=== PATIENT | female | born 1950 | race Caucasian/White ===

== ENCOUNTER 2017-10-20 21:38 | Inpatient (IN) | payer MEDICARE, SELFPAY ==
[2017-10-20 22:17] LABS: #Basophils 0.1 thou/uL (0.0-0.2); #Lymphocytes 2.7 thou/uL (1.20-3.40); #Monocytes 1.2 thou/uL (0.11-0.59); #Neutrophils 14.7 thou/uL (1.40-6.50); %Basophils 0.4 % (0.0-1.0); %Eosinophils 0.2 % (0.0-10.0); %Lymphocytes 14.6 % (21.0-51.0); %Monocytes 6.1 % (0.0-10.0); Hematocrit 38.9 % (36.0-47.0); Mean Platelet Volume 7.5 fL (7.4-10.4); Red Blood Cell (RBC) Count 4.24 mill/uL (4.20-5.40); White Blood Cell (WBC) Count 18.7 thou/uL (4.8-10.8)
[2017-10-20 22:23] LABS: Prothrombin Time 13.4 SEC (12.0-14.7)
[2017-10-20 22:24] LABS: PTT 47.3 SEC (22.9-36.1)
[2017-10-20 22:40] LABS: ALT (SGPT) 15 U/L (8-55); AST (SGOT) 20 U/L (5-34); Alkaline Phosphatase 85 U/L (40-150); Anion Gap 18 mmol/L (10-20); BUN (Urea Nitrogen) 27 mg/dL (9.8-20.1); Bilirubin, Total 0.3 mg/dL (0.2-1.2); CK (CPK) 183 U/L (29-168); Calc. Creatinine Clearance 0 mL/min (70-130); Carbon Dioxide 22 mmol/L (23-31); Chloride 100 mmol/L (98-107); Estimated GFR-MDRD 32; Globulin 3.7 g/dL (2.4-3.5); Protein, Total 7.9 g/dL (6.0-8.3)
[2017-10-20 22:44] LABS: Troponin I 0.226 ng/mL (< 0.028)
[2017-10-20] MEDS ORDERED: Diltiazem HCl 125 MG, Admixture Fee 1 EACH in Sodium Chloride 0.9% 100 ML IVPB SCH (23:00)
[2017-10-21] MEDS ORDERED: Diltiazem HCl 125 MG, Admixture Fee 1 EACH in Sodium Chloride 0.9% 100 ML IVPB SCH ×3 (00:12→18:30)
[2017-10-21] MEDS ORDERED: Acetaminophen 325 MG TAB ONE (00:18)
[2017-10-21] MEDS ORDERED: Enoxaparin Sodium 80 MG/0.8 ML SYRINGE ONE (00:18)
[2017-10-21] MEDS ORDERED: Morphine 4 MG/ML VIAL SLOW IVP PRN (01:19)
[2017-10-21] MEDS ORDERED: Sodium Chloride 0.9% 1,000 ML IV SCH ×2 (01:20→01:41)
[2017-10-21] MEDS ORDERED: Ondansetron ODT 4 MG TAB SL PRN (01:20)
[2017-10-21] MEDS ORDERED: Ondansetron HCl/PF 4 MG/2 ML Vial IVP PRN (01:20)
[2017-10-21] MEDS ORDERED: Dextrose 50% Abboject 50 ML SYRINGE SLOW IVP PRN (01:41)
[2017-10-21] MEDS ORDERED: Dextrose 5% in Water 1,000 ML IV PRN (01:41)
[2017-10-21] MEDS ORDERED: HumaLOG 300 UNITS/3 ML VIAL SC PRN (01:41)
[2017-10-21] MEDS: Acetaminophen 325 MG TAB PO PRN ×4 (02:14→20:54)
[2017-10-21] MEDS ORDERED: Aspirin 325 MG TAB PO SCH (02:30)
[2017-10-21 02:34] LABS: Troponin I 1.335 ng/mL (< 0.028)
[2017-10-21] MEDS ORDERED: Meclizine HCl 25 MG TAB PO PRN (03:00)
[2017-10-21] MEDS ORDERED: PROVENTIL INHALER 6.7 G (200 INHALATIONS) INH PRN (03:00)
[2017-10-21 04:28] LABS: Amphetamine Not Detected (NotDetected); Methadone Not Detected (NotDetected); Methamphetamine Not Detected (NotDetected)
[2017-10-21 04:51] VITALS: BMI 28.2
--- NOTE | 2017-10-21 05:19 | HP-2 ---
CODE STATUS: FULL. PRIMARY CARE PHYSICIAN: [facility], out of town physician in [place]. ATTENDING PHYSICIAN: Dr. Suki Szymanski. RESIDENT: Dr. Fabiana Liu CHIEF COMPLAINT: Difficulty breathing, palpitations. HISTORY OF PRESENT ILLNESS: This is a 67-year-old female with past medical history of congestive heart failure, diabetes mellitus type 2, and hypertension that presents with shortness of breath, palpitations, and weakness since last night. The symptoms have been persistent throughout the day. The patient did start feeling more fatigued and had worsening palpitations, which prompted her to come to the emergency department. Of note, the patient does have a history of irregular heartbeats, but does not recall ever being told she has atrial fibrillation or atrial flutter. She has not been on anticoagulation therapy. The patient denies any chest pain, paroxysmal nocturnal dyspnea, or orthopnea. In the ED, she was found to be in atrial fibrillation with RVR. She was bolused 20 mg of Cardizem and put on a drip at 5 mg per hour. Since that time, the patient's heart rate has gone from the 180s to approximately the 110s. PAST MEDICAL HISTORY: 1. Congestive heart failure. 2. Diabetes mellitus type 2. 3. Hyperlipidemia. 4. Hypertension. 5. History of cerebrovascular accident. 6. History of transient ischemic attack. 7. Polycystic kidney disease. 8. Gastroesophageal reflux disease. 9. History of irregular heart rate. 10. Anemia of chronic disease. 11. Asthma. PAST SURGICAL HISTORY: 1. Appendectomy. 2. Hysterectomy. 3. Oophorectomy. ALLERGIES: 1. BUTORPHANOL. 2. FLUOXETINE. 3. HYOSCYAMINE. 4. IODINE. 5. KETOROLAC. 6. NSAIDS. 7. PROCHLORPERAZINE. 8. PROPOXYPHENE. 9. SULFAMETHOXAZOLE. 10. TOBRAMYCIN. 11. TRIMETHOPRIM. MEDICATIONS: 1. Albuterol sulfate 2 puffs inhalation q.4 h. p.r.n. 2. Amitriptyline 75 mg p.o. at bedtime. 3. Amlodipine besylate 5 mg p.o. daily. 4. Ascorbic acid 500 mg p.o. daily. 5. Atorvastatin 80 mg p.o. daily. 6. Vitamin B12 of 1000 mcg p.o. daily. 7. Estradiol 0.01% vaginal cream 1 gram at the urethra every 7 days. 8. Ferrous sulfate 325 mg p.o. daily. 9. Furosemide 20 mg p.o. daily. 10. Gabapentin 100 mg p.o. t.i.d. 11. Lisinopril 40 mg p.o. daily. 12. Meclizine 25 mg p.o. t.i.d. p.r.n. 13. Nitroglycerin 0.4 mg sublingual every 5 minutes p.r.n. 14. Omeprazole 20 mg p.o. daily. 15. Phenazopyridine 100 mg p.o. b.i.d. p.r.n. 16. Glyburide 2.5 mg p.o. daily. 17. Tizanidine 4 mg p.o. q.6 h. p.r.n. FAMILY HISTORY: Noncontributory. SOCIAL HISTORY: The patient denies tobacco, alcohol, or drug use. REVIEW OF SYSTEMS: A 12-point review of systems was performed, all were negative except as listed in the HPI and as indicated below. The patient does endorse a recent history of nasal congestion, rhinorrhea, cough, congestion. She states that prior to the onset of the palpitations, she does feel like she was getting ill. She did take some Benadryl, thinking that this is all allergy related. She did experience some nausea and a few episodes of nonbloody, nonbilious emesis as well as 2 episodes of diarrhea. The patient also endorses back pain, which is chronic and the patient endorses anxiety and depression. PHYSICAL EXAMINATION: VITAL SIGNS: Blood pressure 134/11, pulse 181, respiratory rate 20, T-max 97.7 , pulse ox 96% on room air, current weight 76 kilograms. GENERAL: The patient is alert and oriented x3, well-developed, well-nourished, obese, appropriately interactive. EYES: Pupils are equally round and reactive to light and accommodation. They are sluggish to react. Conjunctivae within normal limits. ENT: Nasal mucosa within normal limits. NECK: Supple. CARDIOVASCULAR: Patient is tachycardic with an irregularly irregular rhythm consistent with atrial fibrillation. Radial and pedal pulses 2+. RESPIRATORY: Normal effort, no retractions. LUNGS: Clear to auscultation bilaterally. SKIN: Skin is warm and dry without cyanosis or lesions. ABDOMEN: Soft, nontender to palpation. Bowel sounds are positive in all four quadrants and there are no masses or distention. EXTREMITIES: No clubbing, cyanosis or edema. MUSCULOSKELETAL: Structure is within normal limits. Tone is within normal limits. NEUROLOGIC: There appeared to be mild residual facial droop on the left from prior CVA, GCS of 15. PSYCHIATRIC: Appropriate. LABORATORY DATA: 1. White blood cell count 8.7, hemoglobin 12.7, hematocrit 38.9, platelets 275. 2. Sodium 137, potassium 3.0, chloride 100, bicarbonate 23, BUN 27, creatinine 1.61, glucose 136, calcium 10, total protein 7.9, albumin 4.2, AST 20, ALT 15, alkaline phosphatase 85, total bilirubin 0.3. 3. PT 13.4, PTT 47.3, INR 1.0. EKG shows atrial fibrillation with RVR and ST depression in leads IV, V, and . ASSESSMENT AND PLAN: This is a 67-year-old female with past medical history of an irregular heart rate, hypertension, congestive heart failure, diabetes mellitus type 2 that presents with weakness, palpitations, and shortness of breath since last night. 1. Atrial fibrillation with rapid ventricular response. The patient was admitted to telemetry. EKG is consistent with atrial fibrillation with RVR. The patient was bolused 20 mg of Cardizem in the ED and placed on a Cardizem drip at 5 mg per hour. That drip was increased to 10 mg per hour and the patient was given an additional bolus of Cardizem 20 mg IV push. Patient is currently asymptomatic. Troponins were elevated in the indeterminate range. We will continue to monitor troponins. Additionally, we will consult cardiology in the a.m. UDS is pending at this time. It is possible that this current episode of atrial fibrillation with RVR is secondary to recent viral illness. 2. ST depression in V4, V5, V6 and elevated troponins. The patient denies any chest pain. She was placed on therapeutic Lovenox for ST depression and potential myocardial ischemia. We will continue to trend cardiac enzymes. Recommend Cardiology consult in the morning. The patient may be a candidate for a nuclear stress test. 3. Congestive heart failure. The patient was placed on mild fluids due to potential acute kidney injury versus chronic kidney disease. We will fluid restrict free water and limit salt intake. Once it is determined whether or not patient will go back for cardiac catheterization or a stress test, patient can have a heart healthy diet. 4. Diabetes mellitus type 2. The patient was placed on mild sliding scale insulin and hypoglycemia protocol, do a.c. at bedtime Accu-Cheks. The patient' s home medications will be continued. 5. Hypertension. We will continue home medications. 6. Hyperlipidemia. We will continue home medications. 7. Hypokalemia, replace potassium. 8. Leukocytosis. This may be secondary to a stress reaction versus viral upper respiratory infection. 9. Acute kidney injury versus chronic kidney disease. The patient does have history of polycystic kidney disease. We are unable to determine baseline at this time. We will put the patient on mild fluids and continued to monitor BMP. 10. Deep venous thrombosis prophylaxis. Therapeutic Lovenox. DISPOSITION AND LENGTH OF HOSPITAL STAY: Two days. Symptomatic medication will be provided. History and physical exam as well as management discussed with Dr. Wren. EVON
[2017-10-21 05:28] LABS: #Lymphocytes 2.4 thou/uL (1.20-3.40); #Monocytes 0.6 thou/uL (0.11-0.59); #Neutrophils 8.5 thou/uL (1.40-6.50); %Basophils 0.1 % (0.0-1.0); %Eosinophils 0.2 % (0.0-10.0); %Lymphocytes 20.8 % (21.0-51.0); %Monocytes 5.2 % (0.0-10.0); Hematocrit 35.5 % (36.0-47.0); Mean Platelet Volume 7.3 fL (7.4-10.4); Red Blood Cell (RBC) Count 3.86 mill/uL (4.20-5.40); White Blood Cell (WBC) Count 11.5 thou/uL (4.8-10.8)
[2017-10-21] MEDS ORDERED: Potassium Chloride 20 MEQ TAB PO SCH ×2 (06:00→12:00)
[2017-10-21 06:02] LABS: Troponin I 2.085 ng/mL (< 0.028)
[2017-10-21 06:03] LABS: Anion Gap 15 mmol/L (10-20); BUN (Urea Nitrogen) 26 mg/dL (9.8-20.1); Calc. Creatinine Clearance 50 mL/min (70-130); Calcium 9.3 mg/dL (7.8-10.44); Carbon Dioxide 25 mmol/L (23-31); Chloride 101 mmol/L (98-107); Estimated GFR-MDRD 43
[2017-10-21] MEDS ORDERED: glyBURIDE 2.5 MG TAB PO SCH (07:30)
[2017-10-21] MEDS: Aspirin 325 MG TAB PO SCH (08:22)
[2017-10-21] MEDS: Atorvastatin Calcium 40 MG TAB PO SCH (08:22)
[2017-10-21] MEDS: Lisinopril 20 MG TAB PO SCH (08:22)
[2017-10-21] MEDS: Ascorbic Acid 500 mg Chewable Tablet PO SCH (08:22)
[2017-10-21] MEDS: Cyanocobalamin (Vitamin B-12) 1,000 MCG TAB PO SCH (08:22)
[2017-10-21] MEDS: Ferrous Sulfate 325 MG TAB PO SCH (08:23)
[2017-10-21] MEDS: Amlodipine 5 MG TAB PO SCH (08:23)
[2017-10-21] MEDS: Furosemide 20 MG TAB PO SCH (08:23)
[2017-10-21] MEDS: Gabapentin 100 MG CAP PO SCH ×3 (08:23→20:55)
[2017-10-21] MEDS ORDERED: Enoxaparin Sodium 80 MG/0.8 ML SYRINGE SC SCH (09:00)
--- NOTE | 2017-10-21 09:03 | RAD ---
PA AND LATERAL CHEST: Date: 10-21-17 History: Shortness of breath. Comparison: None. FINDINGS: Cardiac silhouette and pulmonary vasculature are within normal limits. The lungs are clear. Vertebrop lasty changes are seen involving the T12 vertebral body. Mild degenerative changes are seen in the t horacic spine. Rounded radiopaque density is seen anterior abdomen in the lateral projection which wa s not seen on the frontal view. This is likely related to ingested material within bowel. IMPRESSION: No acute cardiopulmonary process. POS: [facility]
[2017-10-21 15:39] LABS: Anion Gap 12 mmol/L (10-20); BUN (Urea Nitrogen) 19 mg/dL (9.8-20.1); Calc. Creatinine Clearance 53 mL/min (70-130); Calcium 9.2 mg/dL (7.8-10.44); Carbon Dioxide 24 mmol/L (23-31); Chloride 107 mmol/L (98-107); Estimated GFR-MDRD 46
--- NOTE | 2017-10-21 18:00 | EKG ---
Test Reason : Blood Pressure : / mmHG Vent. Rate : 113 BPM Atrial Rate : 110 BPM P-R Int : 000 ms QRS Dur : 086 ms QT Int : 320 ms P-R-T Axes : 000 001 184 degrees QTc Int : 438 ms Atrial fibrillation with rapid ventricular response Minimal voltage criteria for LVH, may be normal variant Abnormal ECG Confirmed by DR. Shoshana BILLY (3) on 10/21/2017 6:00:15 PM Referred By: SPENCER Confirmed By:DR. Shoshana BILLY
[2017-10-21] MEDS ORDERED: Digoxin 0.25 MG TAB PO SCH (18:15)
[2017-10-21] MEDS ORDERED: Communication Order-Pharmacy FS SCH (21:30)
[2017-10-21 21:39] LABS: Hematocrit 36.5 % (36.0-47.0)
[2017-10-21] MEDS: Sodium Chloride 0.9% 1,000 ML IV SCH (22:50)
--- NOTE | 2017-10-22 03:50 | CON ---
DATE OF CONSULTATION: 10/21/2017 HISTORY OF PRESENT ILLNESS: Gracie Grubbs is a 67-year-old white female whom I evaluated in 10/1997. She had normal coronary arteries on a catheterization by Dr. Romero with an ejection fraction of 70%. In 12/1997, she was admitted with a panic disorder and hyperventilation. Between her catheterization when I first saw her, she had multiple admissions for chest pain with normal Cardiolites. She had been seen in 03/2012 complaining of 48 hours of chest pain. After multiple admissions, it was felt that she should undergo repeat catheterization. This revealed ejection fraction of 60-65% with 20% proximal LAD and 10% distal right coronary artery stenosis. I have not seen her since that time. She has continued to have admissions for chest pain and had negative Cardiolites in 12/2013 and in 04/2016. Yesterday at 3:04 in the afternoon, she was sitting and had onset of feeling of her heart beating very rapidly and irregularly. She denied any chest discomfort or shortness of breath. She came to the emergency room and was found to be in atrial fibrillation with rapid ventricular response, was given 20 mg of Cardizem IV and then 5 mg per hour drip. Her heart rate fell from 180s to 110s. She has since converted to sinus rhythm. She has been found to have abnormal cardiac enzymes. PAST MEDICAL HISTORY: Diabetes, hyperlipidemia, hypertension, history of cerebrovascular accident and transient ischemic attack, polycystic kidney disease, GERD, minimal coronary artery disease on catheterization in 2011, and anemia. OPERATIONS: Appendectomy, hysterectomy, and oophorectomy. MEDICATIONS: Albuterol 2 puffs q.4 hours p.r.n., Elavil 75 at bedtime, amlodipine 5 mg daily, ascorbic acid 500 daily, atorvastatin 80 daily, estradiol 1 g q.7 days, ferrous sulfate 325 daily, furosemide 20 daily, gabapentin 100 mg t.i.d., glyburide 2.5 q.a.m., lisinopril 40 daily, Antivert 25 mg t.i.d. p.r.n., Nitrostat p.r.n., omeprazole 20 daily, Zofran 4 mg p.r.n. ALLERGIES: STADOL, PROZAC, LEVSIN, IODINE (she does not have true allergic reaction to IODINE, it is just listed so that she tries to avoid this with her polycystic kidney disease), TORADOL, DARVON, BACTRIM, TOBREX, NSAIDs. SOCIAL HISTORY: She smoked 1 pack per day, but stopped in the early 90s. She does not drink. FAMILY HISTORY: Negative for coronary artery disease. REVIEW OF SYSTEMS: A 12-point review of systems is unremarkable. PHYSICAL EXAMINATION: VITAL SIGNS: Blood pressure 125/65, pulse 85. HEENT: PERRL. NECK: Supple. CHEST: Clear. CARDIAC: S1 and S2 are normal without any S3, S4, or murmurs. Carotid upstrokes normal, without bruits. ABDOMEN: Normal bowel sounds, without tenderness. EXTREMITIES: Revealed no clubbing, cyanosis, or edema. NEUROLOGIC: Grossly intact. SKIN: Warm and dry. LABORATORY DATA: EKG on admission revealed atrial fibrillation with rapid ventricular response of 175 per minute, nonspecific ST and T-wave changes. CK- MB 9.0. Troponin I 2.085. TSH is normal. BUN 27, creatinine 1.61, which is improved to BUN of 19, creatinine 1.17. Also, potassium was down to 2.8 but is now up to 3.9. IMPRESSION: 1. Atrial fibrillation with fast ventricular response. 2. Elevated cardiac enzymes which certainly could be due to demand ischemia with such a fast rate; however, this seems to be a little higher than what would be expected. She had minimal coronary artery disease on a catheterization in 2011. 3. Hypertension. 4. Diabetes. 5. Hypercholesterolemia. 6. Reactive airway disease. 7. Polycystic kidney disease. 8. She does not have true IODINE allergy. PLAN: It was recommended she undergo a cardiac catheterization with her abnormal cardiac enzymes and then treatment of her atrial fibrillation with anticoagulation will be addressed. Risks of catheterization were discussed with the patient and her including , myocardial infarction, dye reaction, vascular injury, CVA, transfusion, limb loss, renal loss, etc. Also, risk of intervention with PTCA and stent placement were discussed including , myocardial infarction, emergent CABG, restenosis, stent thrombosis, vessel perforation, etc. It was recommended that a bare-metal stent be placed with also the need for anticoagulation at this time. The patient agrees to proceed. [facility]ITAL[facility]
[2017-10-22] MEDS: Sodium Chloride 0.9% 1,000 ML IV SCH ×3 (05:38→14:28)
[2017-10-22] MEDS: Atorvastatin Calcium 40 MG TAB PO SCH (05:41)
[2017-10-22] MEDS: Amlodipine 5 MG TAB PO SCH (05:41)
[2017-10-22] MEDS: Gabapentin 100 MG CAP PO SCH ×3 (05:42→20:46)
[2017-10-22] MEDS: Lisinopril 20 MG TAB PO SCH (05:43)
[2017-10-22] MEDS: Aspirin 325 MG TAB PO SCH (05:43)
[2017-10-22] MEDS ORDERED: Digoxin 0.125 MG TAB PO SCH (06:00)
[2017-10-22 07:54] LABS: Anion Gap 11 mmol/L (10-20); BUN (Urea Nitrogen) 23 mg/dL (9.8-20.1); Calc. Creatinine Clearance 48 mL/min (70-130); Calcium 9.3 mg/dL (7.8-10.44); Carbon Dioxide 25 mmol/L (23-31); Chloride 107 mmol/L (98-107); Estimated GFR-MDRD 40
[2017-10-22] MEDS ORDERED: Heparin 10,000 UNITS/1 ML VIAL ONE (10:05)
--- NOTE | 2017-10-22 10:27 | PDOC.FM ---
- Subjective Subjective: Patient states she is feeling well with no sob, chest pain, nausea. She stated that Dr. Mahajan saw her yesterday and consented her for heart cath. - Objective MAR Reviewed: Yes Vital Signs & Weight: Vital Signs (12 hours) Temp Pulse Resp BP BP Pulse Ox 10/22/17 08:04 97.9 F 76 14 117/59 L 96 10/22/17 05:43 114/56 L 10/22/17 05:41 63 114/56 L 10/22/17 04:00 98.4 F 67 20 114/56 L 93 L 10/22/17 01:25 65 22 H 99/60 10/22/17 00:18 66 24 H 89/50 L Weight Weight 73.346 kg I&O: 10/21/17 10/22/17 10/23/17 06:59 06:59 06:59 Intake Total 800 800 Output Total 700 1350 Balance 100 -550 Result Diagrams: 10/21/17 21:21 10/22/17 07:13 <Keegan Hernandez - Last Filed: 10/22/17 10:34> - Objective Vital Signs & Weight: Vital Signs (12 hours) Temp Pulse Resp BP BP Pulse Ox 10/22/17 08:05 97.9 F 76 14 96 10/22/17 08:04 97.9 F 76 14 117/59 L 96 10/22/17 05:43 114/56 L 10/22/17 05:41 63 114/56 L 10/22/17 04:00 98.4 F 67 20 114/56 L 93 L 10/22/17 01:25 65 22 H 99/60 10/22/17 00:18 66 24 H 89/50 L Weight Weight 73.346 kg I&O: 10/21/17 10/22/17 10/23/17 06:59 06:59 06:59 Intake Total 800 800 Output Total 700 1350 Balance 100 -550 Result Diagrams: 10/21/17 21:21 10/22/17 07:13 <Laurie Richard - Last Filed: 10/22/17 11:25> Phys Exam - Physical Examination HEENT: moist MMs Neck: supple Respiratory: no wheezing, no rales, no rhonchi, clear to auscultation bilateral Cardiovascular: RRR Gastrointestinal: soft, non-tender, no distention, positive bowel sounds Musculoskeletal: no edema Neurological: moves all 4 limbs Lymphatic: no nodes Psychiatric: normal affect <Keegan Hernandez - Last Filed: 10/22/17 10:34> Dx/Plan (1) Atrial fibrillation with RVR Code(s): I48.91 - UNSPECIFIED ATRIAL FIBRILLATION Status: Acute Plan: Afib with rvr now controlled with 10 of dilt, rate to 60-80. Echo taken today, will await read. (2) Elevated troponin Code(s): R74.8 - ABNORMAL LEVELS OF OTHER SERUM ENZYMES Status: Acute Plan: Cardiology consulted, they plan to do a cath today. (3) CHF (congestive heart failure) Code(s): I50.9 - HEART FAILURE, UNSPECIFIED Status: Acute Plan: Echo suggest preserved heart failure, EF of 60-65% (4) DM2 (diabetes mellitus, type 2) Status: Acute Plan: Held oral medication at this time, on SSI to prepare for cath (5) HTN (hypertension) Code(s): I10 - ESSENTIAL (PRIMARY) HYPERTENSION Status: Acute Plan: BP currently under control, continue home med (6) HLD (hyperlipidemia) Code(s): E78.5 - HYPERLIPIDEMIA, UNSPECIFIED Status: Acute Plan: Continue home med <Keegan Hernandez - Last Filed: 10/22/17 10:34> Attending Addendum - Attending Addendum I personally evaluated the patient and discussed the management with Dr. Hernandez I agree with the History, Examination, Assessment and Plan documented above with any addition or exceptions noted below. 67 yo female admitted for A. fib with RVR and NSTEMI HD#1 Doing well. No acute changes overnight. Now rate controlled A.Fib. Remains asymptomatic. Cards following. Continue CCB drip at present. Plan for cath this AM. Timothy <Laurie Richard - Last Filed: 10/22/17 11:25>
[2017-10-22] MEDS ORDERED: Fentanyl 100 MCG/2 ML VIAL ONE (11:57)
[2017-10-22] MEDS ORDERED: Midazolam HCl 2 mg/2 ml Vial ONE (11:57)
[2017-10-22] MEDS ORDERED: HumaLOG 300 UNITS/3 ML VIAL SC PRN (12:00)
[2017-10-22] MEDS ORDERED: glyBURIDE 2.5 MG TAB PO SCH (12:00)
[2017-10-22] MEDS ORDERED: Protamine Sulfate 50 MG/5 ML VIAL ONE (12:17)
[2017-10-22] MEDS ORDERED: Sodium Chloride 0.9% 200 ML IV SCH (12:30)
[2017-10-22] MEDS: Ferrous Sulfate 325 MG TAB PO SCH (12:57)
[2017-10-22] MEDS: Furosemide 20 MG TAB PO SCH (12:57)
[2017-10-22] MEDS: Acetaminophen 325 MG TAB PO PRN (12:57)
[2017-10-22] MEDS: Cyanocobalamin (Vitamin B-12) 1,000 MCG TAB PO SCH (12:57)
[2017-10-22] MEDS: Ascorbic Acid 500 mg Chewable Tablet PO SCH (12:58)
[2017-10-22] MEDS ORDERED: Iopamidol 370 76% 100 ML VIAL ONE (15:31)
[2017-10-22] MEDS: traMADol HCl 50 MG TAB PO PRN (18:44)
[2017-10-23] MEDS: traMADol HCl 50 MG TAB PO PRN ×2 (04:25→10:47)
[2017-10-23 05:28] LABS: Anion Gap 13 mmol/L (10-20); BUN (Urea Nitrogen) 14 mg/dL (9.8-20.1); Calc. Creatinine Clearance 55 mL/min (70-130); Calcium 9.3 mg/dL (7.8-10.44); Carbon Dioxide 25 mmol/L (23-31); Chloride 106 mmol/L (98-107); Cholesterol 154 mg/dl (< 200 Desired); Estimated GFR-MDRD 47; LDL Cholesterol, Calculated 80 mg/dL
[2017-10-23] MEDS: Cyanocobalamin (Vitamin B-12) 1,000 MCG TAB PO SCH (08:33)
[2017-10-23] MEDS: Ferrous Sulfate 325 MG TAB PO SCH (08:33)
[2017-10-23] MEDS: Aspirin 325 MG TAB PO SCH (08:33)
[2017-10-23] MEDS: Furosemide 20 MG TAB PO SCH (08:33)
[2017-10-23] MEDS: Atorvastatin Calcium 40 MG TAB PO SCH (08:33)
[2017-10-23] MEDS: Ascorbic Acid 500 mg Chewable Tablet PO SCH (08:34)
[2017-10-23] MEDS: Gabapentin 100 MG CAP PO SCH ×2 (08:34→15:44)
--- NOTE | 2017-10-23 08:50 | PDOC.FM ---
- Subjective Subjective: Pt seen at bedside in NAD. ISAIAH overnight. at bedside. Pt notes she feels well. Pt denies LOUIS, CP, SOB, NVD. - Objective MAR Reviewed: Yes Vital Signs & Weight: Vital Signs (12 hours) Temp Pulse Resp BP Pulse Ox 10/23/17 04:00 98.7 F 78 20 142/67 H 95 Weight Weight 72.235 kg I&O: 10/22/17 10/23/17 10/24/17 06:59 06:59 06:59 Intake Total 800 2280 Output Total 1350 2375 Balance -550 -95 Result Diagrams: 10/21/17 21:21 10/23/17 04:43 <Rodrigo Mays - Last Filed: 10/23/17 08:49> - Objective Vital Signs & Weight: Vital Signs (12 hours) Temp Pulse Resp BP Pulse Ox 10/23/17 08:30 98.9 F 71 16 137/75 94 L 10/23/17 04:00 98.7 F 78 20 142/67 H 95 Weight Weight 72.235 kg I&O: 10/22/17 10/23/17 10/24/17 06:59 06:59 06:59 Intake Total 800 2280 Output Total 1350 2375 Balance -550 -95 Result Diagrams: 10/21/17 21:21 10/23/17 04:43 <Mukul Ambrose - Last Filed: 10/23/17 10:32> Phys Exam - Physical Examination Constitutional: NAD HEENT: sclera anicteric Respiratory: no wheezing, clear to auscultation bilateral Cardiovascular: RRR, no significant murmur Gastrointestinal: soft, non-tender, positive bowel sounds Neurological: moves all 4 limbs Psychiatric: normal affect, A&O x 3 Skin: cap refill <2 seconds <Rodrigo Mays - Last Filed: 10/23/17 08:49> Dx/Plan (1) Atrial fibrillation with RVR Code(s): I48.91 - UNSPECIFIED ATRIAL FIBRILLATION Status: Acute Plan: -pt presented with complaints of palpitations and found to be in afib w/ RVR -initially responded to diltiazem gtt and transitioned to oral metoprolol -pt NSR on exam and telemetry reveals HR between 60-80 overnight -pt started on Eliquis for anticoagulation -cardiology on board, recs greatly appreciated -pt had TTE which showed HFpEF 60-65% -cath on 10/22, report pending but per nursing was normal -will continue to monitor BP today and consider discharge pending cardiology dispo (2) (HFpEF) heart failure with preserved ejection fraction Code(s): I50.30 - UNSPECIFIED DIASTOLIC (CONGESTIVE) HEART FAILURE Status: Acute Plan: -TTE on 10/22 showed EF 60-65% and evidence of diastolic dysfunction -cardiology on board, recs greatly appreciated (3) Elevated troponin Code(s): R74.8 - ABNORMAL LEVELS OF OTHER SERUM ENZYMES Status: Acute Plan: -trended upwards to 2.085 -cath on 10/22 reportedly normal (4) DM2 (diabetes mellitus, type 2) Status: Acute QualifierTitle: Diabetes mellitus complication status: with kidney complications Diabetes mellitus complication detail: with chronic kidney disease Diabetes mellitus java web architect insulin use: without java web architect use Chronic kidney disease stage: stage 3 (moderate) Qualified Code(s): E11.22 - Type 2 diabetes mellitus with diabetic chronic kidney disease; N18.3 - Chronic kidney disease, stage 3 (moderate); N18.3 - Chronic kidney disease, stage 3 ( moderate) Plan: -continue home glyburide (5) HTN (hypertension) Code(s): I10 - ESSENTIAL (PRIMARY) HYPERTENSION Status: Acute QualifierTitle: Hypertension type: unspecified Qualified Code(s): I10 - Essential (primary) hypertension Plan: -currently well controlled -episode of hypotension on night of admission has resolved -continue to monitor (6) HLD (hyperlipidemia) Code(s): E78.5 - HYPERLIPIDEMIA, UNSPECIFIED Status: Acute QualifierTitle: Hyperlipidemia type: unspecified Qualified Code(s): E78.5 - Hyperlipidemia, unspecified Plan: -continue home atorvastatin - Plan Plan: dispo: Pt stable and doing well. Pt has tolerated metoprolol well and has been started on anticoagulation with Eliquis. Pending cardiology recs, pt likely discharge this afternoon. Continue to monitor. <Rodrigo Mays - Last Filed: 10/23/17 08:49> Attending Addendum - Attending Addendum I personally evaluated the patient and discussed the management with Dr. Mays I agree with the History, Examination, Assessment and Plan documented above with any addition or exceptions noted below. symptoms resolved. sinus rhythm with stable BP on Metoprolol. Echo diastolic dysfunction. Stable for D/c home after noon if BP remains stable. <Mukul Ambrose - Last Filed: 10/23/17 10:32>
[2017-10-23] MEDS ORDERED: Apixaban 5 MG TAB PO SCH (09:00)
[2017-10-23] MEDS ORDERED: Lisinopril 20 MG TAB PO SCH (09:00)
[2017-10-23 17:05] VITALS: BP 143/63; TEMP 98.7
[2017-10-24] MEDS ORDERED: Aspirin 81 mg Enteric Coated Tablet PO SCH (09:00)
== END 2017-10-23 19:01 | disposition home or self-care (01) | DRG 281 ==
LOC: ERS 21:38 → 2NO 23:00
PROVIDERS: ADMIT Family Medicine; ATTEND Family Medicine
PROC: B2111ZZ Fluoroscopy of Multiple Coronary Arteries using Low Osmolar Contrast (ICD-10-PCS; principal; 2017-10-22)
DX: I48.91 Unspecified atrial fibrillation (principal); I21.A1 Myocardial infarction type 2; Q61.3 Polycystic kidney, unspecified; I47.2 Ventricular tachycardia; I38 Endocarditis, valve unspecified; I13.0 Hypertensive heart and chronic kidney disease with heart failure and stage 1 through stage 4 chronic kidney disease, or unspecified chronic kidney disease; I50.32 Chronic diastolic (congestive) heart failure; D72.829 Elevated white blood cell count, unspecified; E78.5 Hyperlipidemia, unspecified; Z79.01 Long term (current) use of anticoagulants; Z86.73 Personal history of transient ischemic attack (TIA), and cerebral infarction without residual deficits; Z90.710 Acquired absence of both cervix and uterus; Z90.721 Acquired absence of ovaries, unilateral; E87.6 Hypokalemia; F17.210 Nicotine dependence, cigarettes, uncomplicated; E78.00 Pure hypercholesterolemia, unspecified; J45.909 Unspecified asthma, uncomplicated; K21.9 Gastro-esophageal reflux disease without esophagitis; I25.10 Atherosclerotic heart disease of native coronary artery without angina pectoris; D63.1 Anemia in chronic kidney disease; N18.3 Chronic kidney disease, stage 3 (moderate); E11.22 Type 2 diabetes mellitus with diabetic chronic kidney disease
CPT/HCPCS: 36415; 36416; 71020; 80048; 80053; 80061; 80306; 82553; 83735; 84100; 84443; 84484; 85025; 85240; 85245; 85246; 85347; 85598; 85610; 85613; 85730; 93005; 93010; 93306; 93454; 96365; 96366; 96372; 96376; 99152; C1769; J1644; J1650; J2250; J2720; J3010; J7050

== ENCOUNTER 2017-11-21 23:12 | Emergency (ER) | payer MEDICARE ==
[2017-11-22] LABS: #Basophils 0.1 thou/uL (0.0-0.2); #Eosinphils 0.1 thou/uL (0.0-0.7); #Lymphocytes 2.9 thou/uL (1.20-3.40); #Monocytes 0.7 thou/uL (0.11-0.59); #Neutrophils 5.2 thou/uL (1.40-6.50); %Basophils 0.6 % (0.0-1.0); %Lymphocytes 32.6 % (21.0-51.0); %Monocytes 7.8 % (0.0-10.0); %Neutrophils 57.9 % (42.0-75.0); Hemoglobin 10.3 g/dL (12.0-16.0); Mean Corpuscular HGB CONC 32.8 g/dL (32.0-36.0); Mean Corpuscular Hemoglobin 30.3 pg (27.0-31.0); Mean Corpuscular Volume 92.4 fl (81.0-99.0); Mean Platelet Volume 7.3 fL (7.4-10.4); Platelet Count 336 thou/uL (130-400); RBC Distribution Width 16.1 % (11.5-14.5); Red Blood Cell (RBC) Count 3.39 mill/uL (4.20-5.40)
[2017-11-22 00:25] LABS: ALT (SGPT) 14 U/L (8-55); AST (SGOT) 19 U/L (5-34); Alkaline Phosphatase 98 U/L (40-150); Anion Gap 15 mmol/L (10-20); BUN (Urea Nitrogen) 20 mg/dL (9.8-20.1); Bilirubin, Total 0.3 mg/dL (0.2-1.2); CK (CPK) 73 U/L (29-168); Calc. Creatinine Clearance 0 mL/min (70-130); Calcium 9.4 mg/dL (7.8-10.44); Carbon Dioxide 20 mmol/L (23-31); Chloride 108 mmol/L (98-107); Estimated GFR-MDRD 32; Globulin 3.2 g/dL (2.4-3.5); Glucose 76 mg/dL (80-115); Potassium 3.7 mmol/L (3.5-5.1); Protein, Total 7.2 g/dL (6.0-8.3); Sodium 139 mmol/L (136-145)
[2017-11-22 00:28] LABS: CKMB 1.3 ng/mL (0-6.6); Troponin I 0.011 ng/mL (< 0.028)
[2017-11-22] MEDS ORDERED: Morphine 4 MG/ML Carpuject ONE (00:36)
[2017-11-22] MEDS ORDERED: Ondansetron HCl/PF 4 MG/2 ML Vial ONE (00:37)
[2017-11-22] MEDS ORDERED: Morphine 2 MG/ML SYRINGE ONE (00:37)
--- NOTE | 2017-11-22 07:28 | RAD ---
1 VIEW CHEST: Date: 11/21/17 HISTORY: Chest pain x1 week. COMPARISON: 10/21/17. FINDINGS: Portable upright chest demonstrates an enlarged cardiac silhouette. Pulmonary vessels and hilum are n ormal. Costophrenic angles are clear. Lungs are hyperinflated. No masses or consolidation. No pneumot horax. Previous vertebroplasty change is suggested in the distal thoracic spine. Evaluation is incomp lete. Similar findings are noted on radiograph from 10/21/17. IMPRESSION: 1. Cardiomegaly. 2. No acute cardiopulmonary process. POS: [facility]
== END 2017-11-22 01:30 | disposition home or self-care (01) ==
LOC: ERS 23:12
DX: R07.89 Other chest pain (principal); G47.30 Sleep apnea, unspecified; I11.0 Hypertensive heart disease with heart failure; I50.9 Heart failure, unspecified; E78.5 Hyperlipidemia, unspecified; K21.9 Gastro-esophageal reflux disease without esophagitis; Z86.73 Personal history of transient ischemic attack (TIA), and cerebral infarction without residual deficits; Z79.82 Long term (current) use of aspirin; Z79.84 Long term (current) use of oral hypoglycemic drugs; Z79.899 Other long term (current) drug therapy
CPT/HCPCS: 71045; 80053; 82553; 83880; 84484; 85025; 93005; 96374; 96375; J2270; J2405

== ENCOUNTER 2018-03-15 18:04 | Observation (INO) | payer MEDICARE ==
[2018-03-15 18:55] LABS: #Eosinphils 0.1 thou/uL (0.0-0.7); #Lymphocytes 2.9 thou/uL (1.20-3.40); #Monocytes 0.5 thou/uL (0.11-0.59); #Neutrophils 5.1 thou/uL (1.40-6.50); %Basophils 0.2 % (0.0-1.0); %Eosinophils 0.7 % (0.0-10.0); %Lymphocytes 34.3 % (21.0-51.0); %Monocytes 5.7 % (0.0-10.0); %Neutrophils 59.1 % (42.0-75.0); Hemoglobin 11.1 g/dL (12.0-16.0); Mean Corpuscular HGB CONC 33.3 g/dL (32.0-36.0); Mean Corpuscular Hemoglobin 30.6 pg (27.0-31.0); Mean Corpuscular Volume 91.9 fl (81.0-99.0); Mean Platelet Volume 6.8 fL (7.4-10.4); Platelet Count 323 thou/uL (130-400); RBC Distribution Width 13.9 % (11.5-14.5); Red Blood Cell (RBC) Count 3.63 mill/uL (4.20-5.40); White Blood Cell (WBC) Count 8.6 thou/uL (4.8-10.8)
[2018-03-15 18:58] LABS: PTT 34.6 SEC (22.9-36.1); Prothrombin Time 13.7 SEC (12.0-14.7)
[2018-03-15 19:09] LABS: ALT (SGPT) 11 U/L (8-55); AST (SGOT) 17 U/L (5-34); Albumin 4.2 g/dL (3.4-4.8); Alkaline Phosphatase 97 U/L (40-150); Anion Gap 13 mmol/L (10-20); BUN (Urea Nitrogen) 14 mg/dL (9.8-20.1); Bilirubin, Total 0.3 mg/dL (0.2-1.2); CK (CPK) 85 U/L (29-168); Calc. Creatinine Clearance 0 mL/min (70-130); Carbon Dioxide 21 mmol/L (23-31); Chloride 108 mmol/L (98-107); Estimated GFR-MDRD 41; Globulin 3.2 g/dL (2.4-3.5); Glucose 88 mg/dL (80-115); Potassium 3.8 mmol/L (3.5-5.1); Protein, Total 7.4 g/dL (6.0-8.3); Sodium 138 mmol/L (136-145)
[2018-03-15] MEDS ORDERED: Morphine 4 MG/ML VIAL ONE ×2 (19:19→22:16)
[2018-03-15] MEDS ORDERED: Nitroglycerin 2% Ointment 1 INCH/1 GM Packet ONE ×2 (19:19→21:44)
[2018-03-15 19:20] LABS: CKMB 1.4 ng/mL (0-6.6); Troponin I 0.015 ng/mL (< 0.028)
--- NOTE | 2018-03-15 19:36 | RAD ---
TWO VIEWS CHEST: History: Shortness of breath. Chest pain. Date: 03-15-18 Comparison: 02-09-18 FINDINGS: Two views of the chest demonstrates a previous vertebroplasty at the T12 level. Osteopenia of the thoracic spine is seen. The lungs are well aerated. No evidence of acute intrathoracic abnormality seen. No evidence of effus ion, pneumonia, or pneumothorax seen. IMPRESSION: Unremarkable two views chest. POS: [facility]
[2018-03-15] MEDS ORDERED: Nitroglycerin 0.4 MG TAB (25 Tab Bottle) PO PRN (23:07)
[2018-03-15] MEDS ORDERED: Enoxaparin Sodium 80 MG/0.8 ML SYRINGE SC SCH (23:15)
[2018-03-15] MEDS ORDERED: Dextrose 50% Abboject 50 ML SYRINGE SLOW IVP PRN (23:16)
[2018-03-15] MEDS ORDERED: Dextrose 5% in Water 1,000 ML IV PRN (23:16)
[2018-03-15] MEDS ORDERED: Insulin Regular 300 UNITS/3 ML VIAL SC PRN (23:16)
[2018-03-15] MEDS ORDERED: Enoxaparin Sodium 80 MG/0.8 ML SYRINGE ONE (23:33)
[2018-03-15 23:47] LABS: Troponin I Less than 0.010 ng/mL (< 0.028)
--- NOTE | 2018-03-16 01:11 | HP ---
CHIEF COMPLAINT: Chest pain. PRIMARY CARE PHYSICIAN: Out of town. HISTORY OF PRESENT ILLNESS: Patient is a 67-year-old female who presents to the hospital with compla ints of chest pain x1. Patient states that she was sitting, folding clothes when she started having some substernal chest pain, which did not radiate to her right or left arm. Patient states that she denies any diaphoresis, nausea, vomiting associated with the pain. Patient stated that initially her pain was sharp in nature. However, 2 hours later she started having some shortness of breath and stringer d to go out and take some few deep breaths. Patient got concerned since she did have heart attack and wanted to come in for further evaluation. Patient states that she has been under a lot o f stress recently. According to her, she has been compliant with her medications; however, in the ER , she was found to have a subtherapeutic INR. Patient currently states that her pain is around 1. P atient also states that she would prefer to have morphine for her chest pain rather than nitroglyceri n. Patient denies any orthopnea or PND. Patient states that when she had her chest pain, she did no t take her nitroglycerin because patient feels that her nitro is very old. PAST MEDICAL HISTORY: 1. Heart failure, unknown type. 2. Diabetes, type 2. 3. Hyperlipidemia. 4. Hypertension. 5. History of cerebrovascular accident. 6. History of transient ischemic attack. 7. Polycystic kidney disease. 8. Reflux. 9. Irregular heart rate. 10. Anemia of chronic disease. 11. Asthma. PAST SURGICAL HISTORY: She has had appendectomy, hysterectomy, and oophorectomy. ALLERGIES: She has multiple allergies including BUTORPHANOL, FLUOXETINE, IODINE, HYOSCYAMINE, TORADO L, NSAIDS, SULFAMETHOXAZOLE, TOBRAMYCIN, TRIMETHOPRIM, PROPOXYPHENE, PROCHLORPERAZINE. MEDICATIONS: Are as the following: She takes albuterol 2 puffs q.4 hours p.r.n., amitriptyline 75 m g at bedtime, amlodipine 5 mg every day, vitamin C 500 mg daily, atorvastatin 80 mg daily, vitamin B1 2 of 1000 mcg daily, iron 325 daily, furosemide 20 mg daily, gabapentin 100 mg daily, lisinopril 40 m g daily, meclizine 25 mg t.i.d. p.r.n., nitroglycerin 0.5 sublingual every 5 minutes p.r.n., omeprazo le 20 mg daily, glyburide 2.5 mg daily, and Zanaflex 2 mg p.o. q.6 hours p.r.n. FAMILY HISTORY: Denies any history of heart disease or diabetes in her family. SOCIAL HISTORY: Denies any alcohol, tobacco, or smoking history. She does have remote history of sm oking. REVIEW OF SYSTEMS: Except for the ones mentioned in the HPI, 12-point review of systems all negative . PHYSICAL EXAMINATION: VITAL SIGNS: Temperature of 97.9, heart rate of 64, respirations are 18, blood pressure is 155/72. GENERAL: She is awake, alert, oriented x3, does not appear in any distress. HEENT: Normocephalic, atraumatic. Patient has no teeth. NECK: No lymphadenopathy noted. CARDIOVASCULAR: S1, S2 present. No murmurs, rubs, or gallops. Regular rate and rhythm. LUNGS: Clear to auscultation. No rhonchi or wheezes noted. ABDOMEN: Soft, nontender. Bowel sounds are present x2. EXTREMITIES: No edema. SKIN: No lesions or rash noted. NEUROLOGIC: Alert and oriented x3. No focal deficits noted. LABORATORY DATA: Are as the following: WBC of 8.6, hemoglobin of 11.1, hematocrit of 33.4, platelet s of 323. Chemistry: Sodium of 138, potassium of 3.8, BUN of 14, creatinine of 1.30. Troponin x1 i s negative. BNP is 113.3. LFTs are normal. Her INR is 1.0. ASSESSMENT AND PLAN: Patient is a very pleasant 67-year-old female who presents to the hospital with complaints of chest pain. 1. Chest pain. Currently, her troponins are negative x1. EKG, no significant changes. We will con tinue to trend troponins. We will also consult Cardiology since she does have a history of coronary artery disease status post stent back in 09/2017. Patient currently is subtherapeutic. We will star t patient on Lovenox until she is therapeutic. We will leave it up to Cardiology if she needs a stre ss test. I will unable to do the D-Dimer because patient is on Coumadin. Patient states that she stringer s been taking her Coumadin as scheduled and states that Cardiology has been monitoring her Coumadin douglas estrella. 2. Hypertension, uncontrolled. We will continue her home meds and add p.r.n.s' 3. Diabetes. We will put patient on sliding scale insulin and continue to monitor. 4. Atrial fibrillation. We will start patient on her normal medications from home, patient is subth erapeutic, we will start Lovenox. 5. Heart failure, diastolic dysfunction, currently patient's BNP is mildly elevated. She has got no clinical manifestations of heart failure. We will just continue to monitor.
[2018-03-16] MEDS ORDERED: hydrALAZINE 20 MG/ML VIAL SLOW IVP PRN (01:12)
[2018-03-16 02:09] LABS: #Eosinphils 0.1 thou/uL (0.0-0.7); #Lymphocytes 2.5 thou/uL (1.20-3.40); #Monocytes 0.6 thou/uL (0.11-0.59); %Basophils 0.4 % (0.0-1.0); %Eosinophils 0.9 % (0.0-10.0); %Lymphocytes 30.8 % (21.0-51.0); %Monocytes 6.8 % (0.0-10.0); Hemoglobin 9.5 g/dL (12.0-16.0); Mean Corpuscular HGB CONC 33.1 g/dL (32.0-36.0); Mean Corpuscular Hemoglobin 30.3 pg (27.0-31.0); Mean Corpuscular Volume 91.7 fl (81.0-99.0); Mean Platelet Volume 6.1 fL (7.4-10.4); Platelet Count 279 thou/uL (130-400); Red Blood Cell (RBC) Count 3.14 mill/uL (4.20-5.40); White Blood Cell (WBC) Count 8.2 thou/uL (4.8-10.8)
[2018-03-16 02:31] LABS: Troponin I 0.017 ng/mL (< 0.028)
[2018-03-16 02:36] LABS: Anion Gap 10 mmol/L (10-20); BUN (Urea Nitrogen) 13 mg/dL (9.8-20.1); Calc. Creatinine Clearance 52 mL/min (70-130); Carbon Dioxide 23 mmol/L (23-31); Cardiac Risk 4.3 (Less than 4.5); Chloride 110 mmol/L (98-107); Cholesterol 204 mg/dl (< 200 Desired); Estimated GFR-MDRD 49; Glucose 102 mg/dL (80-115); HDL Cholesterol 47 mg/dL (>60 Neg Risk); LDL Cholesterol, Calculated 131 mg/dL; Potassium 3.5 mmol/L (3.5-5.1); Sodium 139 mmol/L (136-145); Triglycerides 132 mg/dL (Less than 150)
[2018-03-16] MEDS: Acetaminophen 325 MG TAB PO PRN ×2 (04:39→12:11)
[2018-03-16] MEDS: Morphine 4 MG/ML VIAL SLOW IVP PRN ×2 (04:39→12:06)
[2018-03-16] MEDS ORDERED: Ondansetron ODT 4 MG TAB PO PRN (05:44)
[2018-03-16] MEDS ORDERED: Prevnar 13-Val Conj/PF 0.5 ML SYRINGE IM ONE (09:00)
[2018-03-16] MEDS: Ferrous Sulfate 325 MG TAB PO SCH (09:34)
[2018-03-16] MEDS: Ascorbic Acid 500 mg Chewable Tablet PO SCH (09:34)
[2018-03-16] MEDS: Furosemide 20 MG TAB PO SCH (09:34)
[2018-03-16] MEDS: Gabapentin 100 MG CAP PO SCH ×3 (09:34→21:03)
[2018-03-16] MEDS: Enoxaparin Sodium 80 MG/0.8 ML SYRINGE SC SCH ×2 (09:35→21:04)
[2018-03-16] MEDS: Docusate 100 MG CAP PO SCH ×2 (09:35→21:04)
[2018-03-16] MEDS ORDERED: HYDROcodone/Acetaminophen 5/325 mg Tablet PO PRN (12:23)
[2018-03-16] MEDS: Warfarin Sodium 10 MG TAB PO SCH (16:14)
[2018-03-16] MEDS ORDERED: Warfarin Sodium 5 MG TAB PO SCH (17:00)
[2018-03-16] MEDS: HYDROcodone/Acetaminophen 5/325 mg Tablet PO PRN (18:34)
[2018-03-16] MEDS: Lisinopril 20 MG TAB PO SCH (21:03)
[2018-03-16] MEDS: Senokot S 8.6-50 MG TAB PO SCH (21:03)
[2018-03-16] MEDS: Atorvastatin Calcium 40 MG TAB PO SCH (21:03)
--- NOTE | 2018-03-16 22:55 | PDOC.PN ---
- Subjective Encounter Start Date: 03/16/18 Encounter Start Time: 11:00 Patient seen and examined for CP. Still has intermittent chest tightness. No new complaints. No overnight events - Objective Resuscitation Status: Resuscitation Status FULL:Full Resuscitation MAR Reviewed: Yes Vital Signs & Weight: Vital Signs (12 hours) Temp Pulse Resp BP BP Pulse Ox 03/16/18 21:03 147/73 H 03/16/18 19:17 98.1 F 56 L 16 147/73 H 95 03/16/18 15:10 97.7 F 63 16 145/73 H 94 L 03/16/18 11:17 98.0 F 60 18 166/81 H 95 Weight Weight 147 lb 9.6 oz I&O: 03/15/18 03/16/18 03/17/18 06:59 06:59 06:59 Intake Total 500 Output Total 2049 Balance -1550 Result Diagrams: 03/16/18 02:01 03/16/18 02:01 Additional Labs: Accuchecks 03/16/18 03/16/18 03/16/18 20:31 16:41 11:22 POC Glucose 134 H 115 H 106 03/16/18 05:51 POC Glucose 97 EKG Reviewed by me: Yes (Tele SR) Phys Exam - Physical Examination Constitutional: NAD Neck: no JVD Respiratory: no wheezing, no rales, no rhonchi Symmetrical Cardiovascular: RRR, no rub no heaves/pulsations Gastrointestinal: soft, non-tender, no distention, positive bowel sounds Musculoskeletal: no edema Neurological: non-focal, normal sensation, moves all 4 limbs Psychiatric: A&O x 3 Dx/Plan (1) Chest pain Code(s): R07.9 - CHEST PAIN, UNSPECIFIED Status: Acute Comment: Troponins negative. No need for intervention per Cath 4 months ago. (2) Paroxysmal A-fib Code(s): I48.0 - PAROXYSMAL ATRIAL FIBRILLATION Status: Acute Comment: Rate controlled. Out of Warfarin for last 4-5 days. Follows Warfarin clinic - INR 2.7 in January 2018 (3) DM2 (diabetes mellitus, type 2) Status: Chronic Qualifiers: Chronic kidney disease stage: stage 3 (moderate) Comment: on Sliding scale (4) HTN (hypertension) Code(s): I10 - ESSENTIAL (PRIMARY) HYPERTENSION Status: Chronic (5) Subtherapeutic anticoagulation Code(s): Z51.81 - ENCOUNTER FOR THERAPEUTIC DRUG LEVEL MONITORING; Z79.01 - CUST[employer] HARVESTER (CURRENT) USE OF ANTICOAGULANTS Status: Acute - Plan DVT proph w/lovenox Cont Lovenox for now due to subtherapeutic INR -: INR in AM -: Warfarin 10 mg x 1 -: Cont current meds as below -: DC Imdur, Resume home meds including Amlodipine, Lisinopril Review of Systems - Review of Systems Respiratory: negative: Cough, Dry, Shortness of Breath, Hemoptysis, SOB with Excertion, Pleuritic Pain, Sputum, Wheezing Gastrointestinal: negative: Nausea, Vomiting, Abdominal Pain, Diarrhea, Constipation, Melena, Hematochezia, Other - Medications/Allergies Allergies/Adverse Reactions: Allergies Allergy/AdvReac Type Severity Reaction Status Date / Time butorphanol [From Stadol] Allergy Verified 03/16/18 00:50 fluoxetine [From Prozac] Allergy Verified 03/16/18 00:50 hyoscyamine [From Levsin] Allergy Verified 03/16/18 00:50 iodine Allergy Verified 03/16/18 00:50 ketorolac [From Toradol] Allergy Verified 03/16/18 00:50 NSAIDS (Non-Steroidal Allergy Verified 03/16/18 00:50 Anti-Inflamma prochlorperazine Allergy Verified 03/16/18 00:50 [From Compazine] propoxyphene [From Darvon] Allergy Verified 03/16/18 00:50 sulfamethoxazole Allergy Verified 03/16/18 00:50 [From Bactrim] tobramycin [From Tobrex] Allergy Verified 03/16/18 00:50 trimethoprim [From Bactrim] Allergy Verified 03/16/18 00:50 Medications: Current Medications Acetaminophen (Tylenol) 650 mg PO Q4H PRN PRN Reason: Headache/Fever or Pain Last Admin: 03/16/18 12:11 Dose: 650 mg Hydrocodone Bitart/Acetaminophen ([place] 5/325) 1 tab PO Q4H PRN PRN Reason: Moderate Pain (4-6) Hydrocodone Bitart/Acetaminophen ([place] 5/325) 2 tab PO Q4H PRN PRN Reason: Severe Pain (7-10) Last Admin: 03/16/18 18:34 Dose: 2 tab Amitriptyline HCl (Elavil) 75 mg PO HS [facility] Last Admin: 03/16/18 21:04 Dose: 75 mg Amlodipine Besylate (Norvasc) 5 mg PO DAILY [facility] Ascorbic Acid (Vitamin C) 500 mg PO DAILY [facility] Last Admin: 03/16/18 09:34 Dose: 500 mg Atorvastatin Calcium (Lipitor) 80 mg PO HS [facility] Last Admin: 03/16/18 21:03 Dose: 80 mg Dextrose/Water (Dextrose 50%) 25 gm SLOW IVP PRN PRN PRN Reason: Hypoglycemia Docusate Sodium (Colace) 100 mg PO BID [facility] Last Admin: 03/16/18 21:04 Dose: 100 mg Enoxaparin Sodium (Lovenox) 70 mg SC 0900,2100 [facility] Last Admin: 03/16/18 21:04 Dose: 70 mg Ferrous Sulfate (Feosol) 325 mg PO DAILY [facility] Last Admin: 03/16/18 09:34 Dose: 325 mg Furosemide (Lasix) 20 mg PO DAILY [facility] Last Admin: 03/16/18 09:34 Dose: 20 mg Gabapentin (Neurontin) 100 mg PO TID [facility] Last Admin: 03/16/18 21:03 Dose: 100 mg Glucagon (Glucagon) 1 mg IM PRN PRN PRN Reason: Hypoglycemia Hydralazine HCl (Apresoline) 5 mg SLOW IVP Q6H PRN PRN Reason: SBP Greater Than 170 Dextrose/Water (D5w) 1,000 mls @ 0 mls/hr IV .Q0M PRN; As Directed PRN Reason: Hypoglycemia Insulin Human Regular (Humulin R) 0 units SC .MILD SLIDING SCALE PRN PRN Reason: Mild Correctional Scale Lisinopril (Zestril) 20 mg PO [facility] Last Admin: 03/16/18 21:03 Dose: 20 mg Miscellaneous Medication (Pharmacy To Dose) 1 each PO .WARFARIN [facility] Nitroglycerin (Nitrostat) 0.4 mg PO Q5MIN PRN PRN Reason: Chest Pain Ondansetron HCl (Zofran Odt) 4 mg PO Q6H PRN PRN Reason: Nausea/Vomiting Last Admin: 03/16/18 05:47 Dose: 4 mg Polyethylene Glycol (Miralax) 17 gm PO DAILY [facility] Senna/Docusate Sodium (Senokot S) 1 tab PO BID [facility] Last Admin: 03/16/18 21:03 Dose: 1 tab Warfarin Sodium (Coumadin) 10 mg PO 1700 [facility] Last Admin: 03/16/18 16:14 Dose: 10 mg
[2018-03-17 05:06] LABS: Hemoglobin 9.7 g/dL (12.0-16.0); Platelet Count 279 thou/uL (130-400)
[2018-03-17 05:07] LABS: INR-International Normal Ratio 1.2
[2018-03-17] MEDS: HYDROcodone/Acetaminophen 5/325 mg Tablet PO PRN ×4 (07:25→20:57)
[2018-03-17] MEDS: Ferrous Sulfate 325 MG TAB PO SCH (07:26)
[2018-03-17] MEDS: Docusate 100 MG CAP PO SCH ×2 (07:26→20:56)
[2018-03-17] MEDS: Ascorbic Acid 500 mg Chewable Tablet PO SCH (07:26)
[2018-03-17] MEDS: Amlodipine 5 MG TAB PO SCH (07:27)
[2018-03-17] MEDS: Gabapentin 100 MG CAP PO SCH ×3 (07:27→20:56)
[2018-03-17] MEDS: Polyethylene Glycol 3350 17 GM Packet PO SCH (07:27)
[2018-03-17] MEDS: Senokot S 8.6-50 MG TAB PO SCH ×2 (07:27→20:56)
[2018-03-17] MEDS: Furosemide 20 MG TAB PO SCH (07:27)
[2018-03-17] MEDS: Enoxaparin Sodium 80 MG/0.8 ML SYRINGE SC SCH ×2 (07:28→20:57)
--- NOTE | 2018-03-17 16:01 | PDOC.PN ---
- Subjective Encounter Start Date: 03/17/18 Encounter Start Time: 15:59 Subjective: no new compliants.no CP/SOB/Cough.Fever - Objective Resuscitation Status: Resuscitation Status FULL:Full Resuscitation MAR Reviewed: Yes Vital Signs & Weight: Vital Signs (12 hours) Temp Pulse Resp BP Pulse Ox 03/17/18 11:06 97.4 F L 59 L 16 123/62 94 L 03/17/18 08:00 98.0 F 61 16 03/17/18 07:27 61 03/17/18 07:19 97.6 F 67 16 143/86 H 98 03/17/18 04:22 98.1 F 61 16 129/67 93 L Weight Weight 150 lb I&O: 03/16/18 03/17/18 03/18/18 06:59 06:59 06:59 Intake Total 740 Output Total 2450 1600 Balance -1710 -1600 Result Diagrams: 03/17/18 04:21 03/16/18 02:01 Additional Labs: Accuchecks 03/17/18 03/17/18 03/16/18 11:07 05:06 20:31 POC Glucose 95 94 134 H 03/16/18 16:41 POC Glucose 115 H Laboratory Tests 02/09/18 03/15/18 03/15/18 00:48 17:30 18:46 INR Creatinine 1.34 H 1.30 H Troponin I 0.015 Cholesterol LDL Cholesterol, Calc HDL Cholesterol 03/15/18 03/15/18 03/16/18 18:46 23:16 02:01 INR 1.0 Creatinine Troponin I Less than 0.010 0.017 Cholesterol LDL Cholesterol, Calc HDL Cholesterol 03/16/18 03/17/18 02:01 04:21 INR 1.2 Creatinine 1.12 H Troponin I Cholesterol 204 H LDL Cholesterol, Calc 131 HDL Cholesterol 47 LABS REVIEWED Phys Exam - Physical Examination Constitutional: NAD HEENT: PERRLA, moist MMs, sclera anicteric, oral pharynx no lesions Neck: no nodes, no JVD, supple, full ROM Respiratory: no wheezing, no rales, no rhonchi, clear to auscultation bilateral Cardiovascular: no significant murmur, no rub, irregular Gastrointestinal: soft, non-tender, no distention, positive bowel sounds Musculoskeletal: no edema, pulses present Neurological: non-focal, normal sensation, moves all 4 limbs Psychiatric: normal affect, A&O x 3 Skin: no rash Dx/Plan (1) Chest pain Code(s): R07.9 - CHEST PAIN, UNSPECIFIED Status: Acute Comment: Troponins negative. No need for intervention per Cath 4 months ago. (2) Paroxysmal A-fib Code(s): I48.0 - PAROXYSMAL ATRIAL FIBRILLATION Status: Acute Comment: Rate controlled. Out of Warfarin for last 4-5 days. Follows Warfarin clinic - INR 2.7 in January 2018 (3) Subtherapeutic anticoagulation Code(s): Z51.81 - ENCOUNTER FOR THERAPEUTIC DRUG LEVEL MONITORING; Z79.01 - LONGTERM (CURRENT) USE OF ANTICOAGULANTS Status: Acute Comment: on BID lovenox for bridging (4) DM2 (diabetes mellitus, type 2) Status: Chronic Qualifiers: Chronic kidney disease stage: stage 3 (moderate) Comment: on Sliding scale (5) HTN (hypertension) Code(s): I10 - ESSENTIAL (PRIMARY) HYPERTENSION Status: Chronic (6) DM2 (diabetes mellitus, type 2) Status: Acute Qualifiers: Diabetes mellitus mcfp insulin use: without mcfp use Diabetes mellitus complication status: with kidney complications Diabetes mellitus complication detail: with chronic kidney disease Chronic kidney disease stage : stage 3 (moderate) Qualified Code(s): E11.22 - Type 2 diabetes mellitus with diabetic chronic kidney disease; N18.3 - Chronic kidney disease, stage 3 ( moderate); N18.3 - Chronic kidney disease, stage 3 (moderate) (7) HLD (hyperlipidemia) Code(s): E78.5 - HYPERLIPIDEMIA, UNSPECIFIED Status: Acute Qualifiers: Hyperlipidemia type: unspecified Qualified Code(s): E78.5 - Hyperlipidemia , unspecified - Plan DVT proph w/SCDs cont lovenox for bridgling till coumadin therapeutic.monitor INR -: pt unable to afford OP cost of lovenox so needs inpt care -: HD stable. -: home meds as below * . Review of Systems - Review of Systems Constitutional: negative: fever, chills, sweats, weakness, malaise, other Respiratory: negative: Cough, Dry, Shortness of Breath, Hemoptysis, SOB with Excertion, Pleuritic Pain, Sputum, Wheezing Cardiovascular: negative: chest pain, palpitations, orthopnea, paroxysmal nocturnal dyspnea, edema, light headedness, other Gastrointestinal: negative: Nausea, Vomiting, Abdominal Pain, Diarrhea, Constipation, Melena, Hematochezia, Other Genitourinary: negative: Dysuria, Frequency, Incontinence, Hematuria, Retention , Other Musculoskeletal: negative: Neck Pain, Shoulder Pain, Arm Pain, Back Pain, Hand Pain, Leg Pain, Foot Pain, Other Skin: negative: Rash, Lesions, Lauri, Bruising, Other Neurological: negative: Weakness, Numbness, Incoordination, Change in Speech, Confusion, Seizures, Other - Medications/Allergies Allergies/Adverse Reactions: Allergies Allergy/AdvReac Type Severity Reaction Status Date / Time butorphanol [From Stadol] Allergy Verified 03/16/18 00:50 fluoxetine [From Prozac] Allergy Verified 03/16/18 00:50 hyoscyamine [From Levsin] Allergy Verified 03/16/18 00:50 iodine Allergy Verified 03/16/18 00:50 ketorolac [From Toradol] Allergy Verified 03/16/18 00:50 NSAIDS (Non-Steroidal Allergy Verified 03/16/18 00:50 Anti-Inflamma prochlorperazine Allergy Verified 03/16/18 00:50 [From Compazine] propoxyphene [From Darvon] Allergy Verified 03/16/18 00:50 sulfamethoxazole Allergy Verified 03/16/18 00:50 [From Bactrim] tobramycin [From Tobrex] Allergy Verified 03/16/18 00:50 trimethoprim [From Bactrim] Allergy Verified 03/16/18 00:50 Medications: Current Medications Acetaminophen (Tylenol) 650 mg PO Q4H PRN PRN Reason: Headache/Fever or Pain Last Admin: 03/16/18 12:11 Dose: 650 mg Hydrocodone Bitart/Acetaminophen ([place] 5/325) 1 tab PO Q4H PRN PRN Reason: Moderate Pain (4-6) Hydrocodone Bitart/Acetaminophen ([place] 5/325) 2 tab PO Q4H PRN PRN Reason: Severe Pain (7-10) Last Admin: 03/17/18 15:12 Dose: 2 tab Amitriptyline HCl (Elavil) 75 mg PO HS [facility] Last Admin: 03/16/18 21:04 Dose: 75 mg Amlodipine Besylate (Norvasc) 5 mg PO DAILY [facility] Last Admin: 03/17/18 07:27 Dose: 5 mg Ascorbic Acid (Vitamin C) 500 mg PO DAILY [facility] Last Admin: 03/17/18 07:26 Dose: 500 mg Atorvastatin Calcium (Lipitor) 80 mg PO HS [facility] Last Admin: 03/16/18 21:03 Dose: 80 mg Dextrose/Water (Dextrose 50%) 25 gm SLOW IVP PRN PRN PRN Reason: Hypoglycemia Docusate Sodium (Colace) 100 mg PO BID [facility] Last Admin: 03/17/18 07:26 Dose: 100 mg Enoxaparin Sodium (Lovenox) 70 mg SC 0900,2100 [facility] Last Admin: 03/17/18 07:28 Dose: 70 mg Ferrous Sulfate (Feosol) 325 mg PO DAILY [facility] Last Admin: 03/17/18 07:26 Dose: 325 mg Furosemide (Lasix) 20 mg PO DAILY [facility] Last Admin: 03/17/18 07:27 Dose: 20 mg Gabapentin (Neurontin) 100 mg PO TID [facility] Last Admin: 03/17/18 14:36 Dose: 100 mg Glucagon (Glucagon) 1 mg IM PRN PRN PRN Reason: Hypoglycemia Hydralazine HCl (Apresoline) 5 mg SLOW IVP Q6H PRN PRN Reason: SBP Greater Than 170 Dextrose/Water (D5w) 1,000 mls @ 0 mls/hr IV .Q0M PRN; As Directed PRN Reason: Hypoglycemia Insulin Human Regular (Humulin R) 0 units SC .MILD SLIDING SCALE PRN PRN Reason: Mild Correctional Scale Lisinopril (Zestril) 20 mg PO [facility] Last Admin: 03/16/18 21:03 Dose: 20 mg Miscellaneous Medication (Pharmacy To Dose) 1 each PO .WARFARIN [facility] Nitroglycerin (Nitrostat) 0.4 mg PO Q5MIN PRN PRN Reason: Chest Pain Ondansetron HCl (Zofran Odt) 4 mg PO Q6H PRN PRN Reason: Nausea/Vomiting Last Admin: 03/16/18 05:47 Dose: 4 mg Polyethylene Glycol (Miralax) 17 gm PO DAILY [facility] Last Admin: 03/17/18 07:27 Dose: 17 gm Senna/Docusate Sodium (Senokot S) 1 tab PO BID [facility] Last Admin: 03/17/18 07:27 Dose: 1 tab Warfarin Sodium (Coumadin) 10 mg PO 1700 [facility] Last Admin: 03/16/18 16:14 Dose: 10 mg
[2018-03-17] MEDS: Warfarin Sodium 10 MG TAB PO SCH (16:57)
[2018-03-17] MEDS ORDERED: Warfarin Sodium 7.5 MG TAB PO SCH (17:00)
[2018-03-17] MEDS: Lisinopril 20 MG TAB PO SCH (20:56)
[2018-03-17] MEDS: Atorvastatin Calcium 40 MG TAB PO SCH (20:57)
[2018-03-18] MEDS: HYDROcodone/Acetaminophen 5/325 mg Tablet PO PRN ×3 (03:59→12:46)
[2018-03-18 05:28] LABS: INR-International Normal Ratio 1.3; Prothrombin Time 16.8 SEC (12.0-14.7)
[2018-03-18] MEDS: Amlodipine 5 MG TAB PO SCH (08:12)
[2018-03-18] MEDS: Ascorbic Acid 500 mg Chewable Tablet PO SCH (08:13)
[2018-03-18] MEDS: Docusate 100 MG CAP PO SCH (08:13)
[2018-03-18] MEDS: Enoxaparin Sodium 80 MG/0.8 ML SYRINGE SC SCH (08:13)
[2018-03-18] MEDS: Gabapentin 100 MG CAP PO SCH (08:14)
[2018-03-18] MEDS: Furosemide 20 MG TAB PO SCH (08:14)
[2018-03-18] MEDS: Polyethylene Glycol 3350 17 GM Packet PO SCH (08:14)
[2018-03-18] MEDS: Ferrous Sulfate 325 MG TAB PO SCH (08:14)
[2018-03-18] MEDS: Senokot S 8.6-50 MG TAB PO SCH (08:14)
[2018-03-18 12:03] VITALS: BP 126/67; TEMP 98
[2018-03-18] MEDS ORDERED: Enoxaparin Sodium 30 MG/0.3 ML SYRINGE SC SCH (13:15)
--- NOTE | 2018-03-18 15:45 | DIS ---
DATE OF ADMISSION: 03/15/2018 DATE OF DISCHARGE: 03/18/2018 PRIMARY CARE PHYSICIAN: Out of town. CONDITION AT THE TIME OF DISCHARGE: Stable and improved. DISCHARGE DIAGNOSES: 1. Chest pain, resolved, noncardiac, probably musculoskeletal, acute coronary syndrome ruled out. 2. Paroxysmal atrial fibrillation, rate controlled, on chronic anticoagulation. 3. Subtherapeutic anticoagulation. 4. Diabetes mellitus type 2. 5. Hypertension. 6. Dyslipidemia. DISCHARGE MEDICATIONS: Lasix 40 mg daily, aspirin 81 mg daily, Fosamax 70 mg every 7 days, albuterol as needed, estradiol 1 gram as directed as needed, atorvastatin 80 mg daily, lisinopril 20 mg daily, Toprol-XL 100 mg daily, tizanidine p.r.n., Coumadin 5 mg Friday and Friday, and then 7.5 rest of the days, glyburide 2.5 mg daily, gabapentin 100 mg p.o. t.i.d., amlodipine 5 mg daily., amitriptyline 7 5 mg daily. NEW MEDICATION: Lovenox 100 mg subcutaneously daily until the INR is therapeutic. DISCHARGE FOLLOWUP: 1. Primary care physician. 2. Coumadin Clinic. PROCEDURES DONE IN THE HOSPITAL: Chest x-ray which is unremarkable. HISTORY OF PRESENTING ILLNESS: Ms. Grubbs is a pleasant 67-year-old female with history of diabetes, hypertension, dyslipidemia, and history of CVA who presented to the emergency room with complaints of chest pain. She was admitted for ACS rule out. Troponins were negative. EKG was unremarkable. Se rial cardiac enzymes were trended and were negative. She recently has had a negative cardiac cathete rization last year, so no further testing was recommended. HOSPITAL COURSE: The patient was found to have subtherapeutic anticoagulation with INR being only 1. 0. She is on Coumadin for her history of atrial fibrillation. She was started on Lovenox for bridgi ng and was restarted on Coumadin with increased dosages. She did report that she has missed several doses of Coumadin prior to presentation. Her discharge was delayed because her INR was still subther apeutic. Eventually, we were able to help her out with securing Lovenox for home for bridging. She will get home Lovenox until her INR is therapeutic, which will be monitored by Coumadin clinic. Pres criptions were provided for this and she was taught to inject it herself. She was seen and examined prior to discharge. PHYSICAL EXAMINATION: VITAL SIGNS: Temperature 98, pulse of 67, saturating 92% on room air, respirations 20, blood pressur e 126/67, no acute distress, awake, alert, oriented x3. CHEST: Clear to auscultation without any wheezing, rales or rhonchi. HEART: Rate and rhythm is regular without any murmur, rubs or gallops. LABORATORY EXAMINATION: Her INR today is 1.3. Discharge plan was discussed with the patient and all questions were answered.
--- NOTE | 2018-03-24 14:19 | EKG ---
Test Reason : CP Blood Pressure : / mmHG Vent. Rate : 062 BPM Atrial Rate : 062 BPM P-R Int : 132 ms QRS Dur : 072 ms QT Int : 434 ms P-R-T Axes : 064 -02 041 degrees QTc Int : 440 ms Normal sinus rhythm Moderate voltage criteria for LVH, may be normal variant Borderline ECG Reconfirmed by BIGG BUTLER ([id number]), brands editor JOSE ANDRADE ([id number]) on 03/24/2018 2:18:44 PM Referred By: Confirmed By:BIGG BUTLER
== END 2018-03-18 14:52 | disposition home or self-care (01) ==
LOC: ERS 18:04 → 2SW 23:00
PROVIDERS: ADMIT Internal Medicine; ATTEND Internal Medicine
DX: R07.89 Other chest pain (principal); I48.0 Paroxysmal atrial fibrillation; E11.9 Type 2 diabetes mellitus without complications; I11.0 Hypertensive heart disease with heart failure; I50.9 Heart failure, unspecified; E78.5 Hyperlipidemia, unspecified; J45.909 Unspecified asthma, uncomplicated; K21.9 Gastro-esophageal reflux disease without esophagitis; D63.8 Anemia in other chronic diseases classified elsewhere; Z88.1 Allergy status to other antibiotic agents; Z88.8 Allergy status to other drugs, medicaments and biological substances; Z91.041 Radiographic dye allergy status; Z79.84 Long term (current) use of oral hypoglycemic drugs; Z79.01 Long term (current) use of anticoagulants; Z79.899 Other long term (current) drug therapy; Z98.890 Other specified postprocedural states; Z86.73 Personal history of transient ischemic attack (TIA), and cerebral infarction without residual deficits
CPT/HCPCS: 71046; 80048; 80053; 80061; 82550; 82553; 82962 ×3; 83880; 84484 ×3; 85014; 85018; 85025 ×2; 85049; 85610 ×3; 85730; 93005; 94760 ×3; 96372 ×4; 96374; 96376 ×2; 99285; G0378 ×2; 36415; 36416; J1650; J2270; Q0162